=== PATIENT | female | born 1970 | race Two or more races ===

== ENCOUNTER 2016-10-24 08:05 | Outpatient (CLI) | payer BC ==
[2016-10-24 08:50] LABS: ALBUMIN 3.6 g/dL (3.4-5.0); BILIRUBIN,TOTAL 0.4 mg/dL (0.2-1.0); CALCIUM, SERUM 8.7 mg/dL (8.5-10.1); CREATININE 0.7 mg/dL (0.6-1.3); POTASSIUM 4.3 mmol/L (3.5-5.1); TOTAL PROTEIN, SERUM 7.1 g/dL (6.4-8.2)
[2016-10-24 08:58] LABS: BASOPHILS % (AUTO) 0.5 % (0.0-2.0); DIFF TOTAL % 100 %; EOSINOPHILS # (AUTO) 0.1 /CMM (0.0-0.7); EOSINOPHILS % (AUTO) 1.6 % (0.0-6.0); HEMATOCRIT 41 % (33-45); HEMOGLOBIN 13.6 g/dL (11.5-14.8); LYMPHOCYTES # (AUTO) 1.9 /CMM (0.8-4.8); LYMPHOCYTES % (AUTO) 32.4 % (20.0-44.0); MEAN CORPUSCULAR HEMOGLOBIN 30 PG (26.0-33.0); MEAN CORPUSCULAR HGB CONC 33 g/dl (31.0-36.0); MEAN CORPUSCULAR VOLUME 88 fL (82-100); MONOCYTES # (AUTO) 0.4 /CMM (0.1-1.30); MONOCYTES % (AUTO) 7.1 % (2.0-12.0); NEUTROPHILS # (AUTO) 3.4 /CMM (1.8-8.9); NEUTROPHILS % (AUTO) 58.4 % (43.0-81.0); PLATELET COUNT (AUTO) 317 /CMM (150-450); RED BLOOD CELL COUNT(AUTO) 4.61 MIL/uL (4.0-5.2); WHITE BLOOD COUNT (AUTO) 5.8 K/uL (4.3-11.0)
[2016-10-24 09:00] LABS: THYROID STIMULATING HORMONE 0.984 uIU/mL (0.358-3.74)
== END 2016-10-24 23:59 | disposition home or self-care (01) ==
LOC: LAB 08:05
PROVIDERS: ATTEND Family Medicine
DX: Z00.01 Encounter for general adult medical examination with abnormal findings (principal)
CPT/HCPCS: 36415; 71020-TC; 80053-TC; 80061-TC; 84436-TC; 84443-TC; 85025-TC

== ENCOUNTER 2016-11-06 08:15 | Outpatient (CLI) | payer BC ==
[2016-11-06 21:45] LABS: CREATININE 0.8 mg/dL (0.6-1.3)
== END 2016-11-06 23:59 | disposition home or self-care (01) ==
LOC: LAB 08:15
PROVIDERS: ATTEND Family Medicine
DX: R63.5 Abnormal weight gain (principal)
CPT/HCPCS: 36415; 82533; 82565-TC; 84520-TC

== ENCOUNTER 2016-11-08 08:36 | Outpatient (CLI) | payer BC ==
[2016-11-08] MEDS ORDERED: BARIUM SULFATE SUSP 450 ML BOTTLE PO ONE (08:57)
[2016-11-08] MEDS ORDERED: IV NS 0.9% 250 ML IV ONE (10:02)
[2016-11-08] MEDS ORDERED: CT SWABBABLE VALVE TRANS SET 1 EA INFUS.SET MC ONE (10:02)
[2016-11-08] MEDS ORDERED: IOHEXOL-300 100 ML VIAL IV ONE (10:02)
== END 2016-11-08 23:59 ==
LOC: CT 08:36
PROVIDERS: ATTEND Family Medicine
DX: R63.5 Abnormal weight gain (principal)
CPT/HCPCS: 36415; 71260; 72193; 74160; 82533 ×2; J7050; Q9967

== ENCOUNTER 2016-12-04 08:32 | Outpatient (CLI) | payer BC ==
[2016-12-04 12:23] LABS: HIV-1 p24 ANTIGEN NON REACTIVE (NONREACTIVE); HIV-1/2 ANTIBODY NON REACTIVE (NONREACTIVE)
[2016-12-05 10:21] LABS: *RAPID PLASMA REAGIN QUAL Non Reactive (Non Reactive)
[2016-12-05 16:03] LABS: HEPATITIS C VIRUS AB <0.1 s/co ratio (0.0-0.9)
== END 2016-12-04 23:59 | disposition home or self-care (01) ==
LOC: LAB 08:32
PROVIDERS: ATTEND Family Medicine
DX: Z11.3 Encounter for screening for infections with a predominantly sexual mode of transmission (principal); Z12.4 Encounter for screening for malignant neoplasm of cervix
CPT/HCPCS: 36415; 86592; 86803; 87491; 87591; 88142

== ENCOUNTER 2016-12-30 09:09 | Outpatient (CLI) | payer BC | END 2016-12-30 23:59 | disposition home or self-care (01) | LOC: US 09:09 | PROVIDERS: ATTEND Family Medicine | DX: R19.09 Other intra-abdominal and pelvic swelling, mass and lump (principal); R10.9 Unspecified abdominal pain | CPT/HCPCS: 76882 ==